=== PATIENT | female | born 2000 | race Caucasian/White ===

== ENCOUNTER → 2022-09-24 10:48 | Outpatient (REF) | payer OTHER, SELFPAY ==
--- NOTE | 2022-09-24 10:56 | CA_ITS ---
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 The visually estimated ejection fraction is between 60-65%. Spectral Doppler is indicative of a normal filling pattern. Peak GLS is -18.6%, within normal limits. Right Ventricle Normal right ventricular cavity size and systolic function. Atria Both atria are normal in size. There is no evidence of interatrial shunt. Aortic Valve Normal aortic valve structure and function. There is no aortic valve stenosis. There is no aortic valve regurgitation. Mitral Valve Normal mitral valve structure and function. There is trace mitral valve regurgitation. There is no mitral valve stenosis. Pulmonic Valve The pulmonic valve is likely normal. There is trace pulmonic valve regurgitation. Tricuspid Valve Normal tricuspid valve structure. There is trace tricuspid valve regurgitation. The right ventricular systolic pressure is normal. The right ventricular systolic pressure is 23 mmHg. Normal right atrial pressure. There is no evidence of pulmonary hypertension. Great Vessels All visible segments of the aorta are normal in size. The pulmonary artery was not well visualized. Venous The inferior vena cava is normal in size and collapses greater than 50% with inspiration. Pericardium/Pleural There is no evidence of pericardial effusion. Prior Study Comparison No prior study available for comparison. Measurements 2D Linear Measurements IVSd: 0.78 0.6-0.9/0.6-1.0 cm LVIDd: 4.33 3.9-5.3/4.2-5.9 cm LVIDd Index: 3.12 2.4-3.2/2.2-3.1 cm/m2 LVIDs: 2.99 2.0-3.6 cm LVPWd: 0.73 0.7-1.1 cm LA Diam: 2.70 2.7-3.8/3.0-4.0 cm LAIDs Index: 1.94 1.5-2.3 cm/m2 LV Mass: 121.86 67-162/88-224 g LV Mass Index: 87.67 43-95/49-115 g/m2 LVOT Diam: 2.00 3.0+(-)1.3 cm 2D Systolic Function EF 4C: 58.90 >55% EF 2C: 64.50 >55% EF BiP: 61.90 >55% Mitral Valve MV Pk E: 0.99 MV PK A: 0.55 MV Decel Time: 210.00 E/A: 1.80 E'Lateral: 17.80 E'Medial: 10.60 E/E' Med: 9.30 E/E' Lat: 5.60 PHT: 62.00 MVA PHT: 3.55 Decel [place]: 4.70 Aortic Valve AoV Pk Juan Jose: 1.05 AoV Mn Juan Jose: 0.79 AoV VTI: 0.26 AoV Pk Grad: 4.00 Aov Mn Grad: 3.00 NARDA Cont.VTI: 2.55 LVOT LVOT Pk Juan Jose: 0.92 LVOT Mn Juan Jose: 0.62 LVOT VTI: 0.21 LVOT Pk Grad: 3.00 LVOT Mn Grad: 2.00 LVOT Diam: 2.00 LVOT Area: 3.14 Diastolic Function MV Pk E: 0.99 MV Pk A: 0.55 E/A: 1.80 E'Medial: 10.60 E/E' Med: 9.30 E' Laterial: 17.80 E/E' Lat: 5.60 Right Ventricle TAPSE (mm): 25.40 TVS' Juan Jose: 11.10 Tricuspid Valve TR Pk Juan Jose: 1.92 TR Pk Grad: 15.00 RA Press: 8.00 RVSP: 23.00 Great Vessels Aorta Sinus of Valsalva: 2.72 2.0-3.[address] [place]: 1.82 1.7-3.4 cm Ao Asc: 2.40 2.1-3.4 cm Ao Arch: 2.00 Updated in Other Vendor System with Status of Final Fran Farrar MD electronically signed on 09/24/2022 5:12:48 PM with status of Final
== END ==
LOC: HO.CARD 10:48
PROVIDERS: PCP Pediatrics; Visit Provider Pediatrics
DX: M35.9 Systemic involvement of connective tissue, unspecified (principal)
CPT/HCPCS: 93306; 93356